=== PATIENT | female | born 1995 | race Caucasian/White ===

== ENCOUNTER 2017-02-24 00:24 | Emergency (ER) | payer OTHER ==
[~2017-02-24] VITALS: Ht 167.6 cm; Wt 68.2 kg
[2017-02-24 00:28] VITALS: BP 121/92; PULSE 90; TEMP 98
[2017-02-24 00:46] LABS: BASO % 0.4 % (0.0-2.0); EOS # 0.1 (0.0-0.7); EOS % 1.2 % (0-4.0); GRAN # 4.7 (1.4-6.5); HEMATOCRIT 43.5 % (37.0-47.0); HEMOGLOBIN 14.8 g/dl (12.5-16.0); LYMPH # 2.2 (1.2-3.4); LYMPH % 30.1 % (20.0-51.0); MEAN CELL VOLUME 85 fl (80.0-100.0); MEAN CORPUSCULAR HEMOGLOBIN 29 pg (27.0-31.0); MEAN CORPUSCULAR HGB CONC 34 g/dl (33.0-37.0); MEAN PLATELET VOLUME 10.4 fl (7.4-10.4); MONO # 0.4 (0.1-0.6); MONO % 5.2 % (1.7-9.3); PLATELET COUNT 185 K/mm3 (130-400); RED BLOOD COUNT 5.13 M/mm3 (4.10-5.30); WHITE BLOOD COUNT 7.4 K/mm3 (4.8-10.8)
[2017-02-24 01:00] LABS: ADJUSTED CALCIUM 8.4 mg/dL (8.4-10.2); ALBUMIN 5.1 gm/dL (3.5-5.0); BILIRUBIN,TOTAL 0.7 mg/dL (0.0-1.0); CALCIUM 9.3 mg/dL (8.4-10.2); CREATININE, serum 0.77 mg/dL (0.52-1.25); MAGNESIUM 2.4 mg/dL (1.6-2.3); PHOSPHOROUS 4.9 mg/dL (2.5-4.5); TOTAL PROTEIN 8.2 gm/dL (6.4-8.2)
== END 2017-02-24 01:54 | disposition home or self-care (01) ==
LOC: COL.ER 00:24
PROVIDERS: Emergency Medicine
DX: F10.129 Alcohol abuse with intoxication, unspecified (principal); Y90.7 Blood alcohol level of 200-239 mg/100 ml
CPT/HCPCS: J2405

== ENCOUNTER 2017-04-02 03:29 | Emergency (ER) | payer OTHER ==
[~2017-04-02] VITALS: Ht 167.6 cm; Wt 62.3 kg
[2017-04-02 03:40] VITALS: BP 136/81
[2017-04-02 05:01] VITALS: PULSE 106; TEMP 97.5
== END 2017-04-02 04:05 | disposition home or self-care (01) ==
LOC: COL.ER 03:29
DX: R45.851 Suicidal ideations (principal); F10.129 Alcohol abuse with intoxication, unspecified; F32.9 Major depressive disorder, single episode, unspecified; F41.9 Anxiety disorder, unspecified; Z90.89 Acquired absence of other organs

== ENCOUNTER 2017-05-06 15:05 | Emergency (ER) | payer OTHER ==
[~2017-05-06] VITALS: Ht 170.2 cm; Wt 72.7 kg
[2017-05-06 15:09] VITALS: TEMP 97.1
[2017-05-06 16:54] VITALS: BP 98/85; PULSE 84
== END 2017-05-06 16:53 | disposition home or self-care (01) ==
LOC: COL.ER 15:05
DX: T36.3X5A Adverse effect of macrolides, initial encounter (principal); Z90.89 Acquired absence of other organs; Z98.890 Other specified postprocedural states
CPT/HCPCS: J2405; J7030

== ENCOUNTER 2017-06-27 15:21 | Emergency (ER) | payer BC, OTHER ==
[~2017-06-27] VITALS: Ht 170.2 cm; Wt 68.2 kg
[2017-06-27 15:26] VITALS: BP 124/72; PULSE 101; TEMP 98.2
[2017-06-27] MEDS ORDERED: OCUFLOX OPHTH DR5 ML OD (16:47)
== END 2017-06-27 17:05 | disposition home or self-care (01) ==
LOC: COL.ER 15:21
DX: S05.01XA Injury of conjunctiva and corneal abrasion without foreign body, right eye, initial encounter (principal); F17.200 Nicotine dependence, unspecified, uncomplicated; W34.00XA Accidental discharge from unspecified firearms or gun, initial encounter

== ENCOUNTER 2017-07-14 02:11 | Emergency (ER) | payer OTHER, BC ==
[~2017-07-14] VITALS: Ht 167.6 cm; Wt 68.2 kg
[~2017-07-14 02:11] MED LIST: OCUFLOX OPHTH DR5 ML OD
[2017-07-14 02:14] VITALS: TEMP 97.3
[2017-07-14 02:35] LABS: BASO % 0.4 % (0.0-2.0); EOS # 0.2 (0.0-0.7); EOS % 2.2 % (0-4.0); GRAN # 4.1 (1.4-6.5); GRAN % 47.8 % (42.2-75.2); HEMATOCRIT 43.5 % (37.0-47.0); HEMOGLOBIN 15.4 g/dl (12.5-16.0); LYMPH # 3.6 (1.2-3.4); LYMPH % 42.4 % (20.0-51.0); MEAN CELL VOLUME 82 fl (80.0-100.0); MEAN CORPUSCULAR HEMOGLOBIN 29 pg (27.0-31.0); MEAN CORPUSCULAR HGB CONC 35 g/dl (33.0-37.0); MEAN PLATELET VOLUME 10.2 fl (7.4-10.4); MONO # 0.6 (0.1-0.6); MONO % 6.8 % (1.7-9.3); PLATELET COUNT 183 K/mm3 (130-400); RED BLOOD COUNT 5.33 M/mm3 (4.10-5.30)
[2017-07-14 02:46] LABS: ALBUMIN 4.3 gm/dL (3.5-5.0); BILIRUBIN,TOTAL 0.3 mg/dL (0.0-1.0); CALCIUM 8.6 mg/dL (8.4-10.2); CREATININE, serum 0.75 mg/dL (0.52-1.25); POTASSIUM 3.3 mmol/L (3.4-5.0); TOTAL PROTEIN 8.1 gm/dL (6.4-8.2)
[2017-07-14] MEDS ORDERED: DEPO-PROVER150 MG/M1 IM (02:48)
[2017-07-14 04:00] VITALS: BP 106/64; PULSE 91
== END 2017-07-14 04:02 | disposition home or self-care (01) ==
LOC: COL.ER 02:11
PROVIDERS: Emergency Medicine
DX: F10.129 Alcohol abuse with intoxication, unspecified (principal); R11.10 Vomiting, unspecified; F41.9 Anxiety disorder, unspecified; Y90.7 Blood alcohol level of 200-239 mg/100 ml
CPT/HCPCS: J1200; J2550; J7030

== ENCOUNTER 2017-07-20 12:10 | Outpatient (CLI) | payer OTHER, BC ==
[~2017-07-20] VITALS: Ht 170.2 cm; Wt 77.4 kg
[~2017-07-20 12:10] MED LIST changes: +DEPO-PROVER150 MG/M1 IM
[2017-07-20 12:25] VITALS: BP 109/74; PULSE 71
[2017-07-20 14:10] VITALS: BP 114/70; PULSE 79
[2017-07-20 14:24] VITALS: BP 114/70; PULSE 74
[2017-07-20 14:25] VITALS: BP 106/70; PULSE 79
[2017-07-20 14:45] VITALS: BP 105/70; PULSE 78
== END 2017-07-20 15:30 | disposition home or self-care (01) ==
LOC: COL.RAD 12:10
DX: M54.41 Lumbago with sciatica, right side (principal); M54.42 Lumbago with sciatica, left side; Z90.49 Acquired absence of other specified parts of digestive tract; Z98.890 Other specified postprocedural states
CPT/HCPCS: Q9965

== ENCOUNTER → 2017-07-30 | Outpatient (CLI) | payer BC, OTHER ==
[~2017-07-30] VITALS: Ht 170.2 cm; Wt 78.0 kg
[2017-07-30 13:12] VITALS: BP 122/81; PULSE 93
== END ==
LOC: COL.RAD 13:00
DX: E04.1 Nontoxic single thyroid nodule (principal)

== ENCOUNTER → 2017-08-17 | Outpatient (CLI) | payer BC, OTHER | LOC: MHCPAIN 10:39 | DX: G89.29 Other chronic pain (principal); M47.27 Other spondylosis with radiculopathy, lumbosacral region; M53.3 Sacrococcygeal disorders, not elsewhere classified; M96.1 Postlaminectomy syndrome, not elsewhere classified; F17.210 Nicotine dependence, cigarettes, uncomplicated | CPT/HCPCS: G0463 ==

== ENCOUNTER → 2018-04-22 | Outpatient (CLI) | payer BC, OTHER | LOC: COL.RAD 13:14 | DX: Z30.431 Encounter for routine checking of intrauterine contraceptive device (principal); R10.2 Pelvic and perineal pain; Z97.5 Presence of (intrauterine) contraceptive device ==

== ENCOUNTER → 2018-08-08 | Outpatient (CLI) | payer OTHER, BC | LOC: COL.RAD 13:59 | DX: M51.16 Intervertebral disc disorders with radiculopathy, lumbar region (principal); M47.26 Other spondylosis with radiculopathy, lumbar region | CPT/HCPCS: A9585 ==